=== PATIENT | female | born 1945 | race Caucasian/White ===

== ENCOUNTER → 2019-03-22 | Outpatient (CLI) | payer MEDICARE, OTHER ==
[~2019-03-22] MED LIST: CYCLOBENZAPRINE10 MG; HYZAAR 50-12.51 EACH; PROTONIX40 M2; VICODIN 5-5001 EACH PO; ZOCOR 20 MG TAB20 M1; ZOLOFT 50 MG TA50 M1
[2019-03-22 08:59] LABS: POTASSIUM 3.6 mmol/L (3.5-5.1)
== END ==
LOC: M.LAB 04:31
PROVIDERS: Anesthesiology
DX: E87.6 Hypokalemia (principal); E11.9 Type 2 diabetes mellitus without complications